=== PATIENT | female | born 1985 | race American Indian/Alaskan Native ===

== ENCOUNTER 2018-11-17 07:39 | Inpatient (IN) | payer OTHER ==
[2018-11-17] MEDS ORDERED: BRETHINE SUB-Q PRN (08:08)
[2018-11-17] MEDS ORDERED: XYLOCAINE 2% INFILTRATI ONE (08:08)
[2018-11-17] MEDS ORDERED: SUBLIMAZE IV PRN (08:08)
[2018-11-17] MEDS ORDERED: MINERAL OIL PO PRN (08:08)
[2018-11-17] MEDS ORDERED: AMPICILLIN/NS 2 GM/100 ML 2 GM/100 ML BAG IV ONE (08:08)
[2018-11-17] MEDS ORDERED: ZOFRAN IV PRN (08:08)
--- NOTE | 2018-11-17 08:08 | History and Physical Report ---
History of Present Illness Date of examination: 11/17/18 Chief complaint: SROM 203911/17/18 History of present illness: EDC Calculations LMP: 12/04/2018 Past History : 4 Premature Births: 1 Living Children: 1 Para: 1 Elect. Ab: 1 Spont. 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 of genital herpes: no Rash, Viral, or Febrile illness since last LMP? no Varicella/Chicken Pox Status: Immunized Genetic History Congenital Heart Defect: Mom: no Dad: no Cinthia Disease: Mom: no Dad: no Thalassemia Mom: no Dad: no Neural Tube Defect Mom: no Dad: no Down's Syndrome Mom: no Dad: no Dustin-Sachs Mom: no Dad: no Sickle Cell Disease/Trait Mom: no Dad: no Hemophilia Mom: no Dad: no Muscular Dystrophy Mom: no Dad: no Cystic Fibrosis Mom: no Dad: no Ariana Chorea Mom: no Dad: no Mental Retardation Mom: no Dad: no Fragile X Mom: no Dad: no Other Genetic/Chromosomal Disorder Mom: no Dad: no Child w/other defect Mom: no Dad: no Enviromental Exposures Xray Exposure: no Medication, drug, or alcohol use since LMP: no Chemical/Other Exposure: no Exposure to Cat Liter: no Hx of Parvovirus (Fifth Disease): no Occupational Exposure to Children: none Active Medications (reviewed today): PNV () Current Allergies (reviewed today): No known allergies Past History Past Medical History: other (see HPI) Past Surgical History: other (see HPI) LATHE MACHINIST History: other (see HPI) Family/Genetic History: other (see HPI) - Obstetrical History Expected Date of Delivery: 12/04/18 Actual Gestation: 37 Week(s) 4 Day(s) : 4 Para: 1 Hx # Term Pregnancies: 0 Number of Pregnancies: 1 Spontaneous Abortions: 1 Induced : 1 Number of Living Children: 1 Medications and Allergies Allergies Allergy/AdvReac Type Severity Reaction Status Date / Time No Known Allergies Allergy Verified 04/23/16 17:02 Review of Systems All systems: negative - Vital Signs Vital signs: Vital Signs Temp Pulse Resp BP 97.7 F 90 18 134/78 11/17/18 08:01 11/17/18 08:01 11/17/18 08:01 11/17/18 08:01 Temp Pulse Resp BP Pulse Ox 97.7 F 90 18 134/78 11/17/18 08:01 11/17/18 08:01 11/17/18 08:01 11/17/18 08:01 - Physical Exam Breasts: Positive: normal Cardiovascular: Regular rate Lungs: Positive: Clear to auscultation, Normal air movement Abdomen: Positive: normal appearance, soft Genitourinary (Female): Positive: normal external genitalia, normal perenium Vagina: Positive: normal moisture Uterus: Positive: normal size, normal contour Anus/Rectum: Positive: normal perianal skin Extremities: Positive: normal - Obstetrical Uterine Contraction Monitor Mode: External Cervical Dilatation: 4.5 Cervical Effacement Percentage: 90 Uterine Contraction Pattern: Regular Uterine Tone Measurement Phase: Contraction Uterine Contraction Intensity: Moderate Results Result Diagrams: 11/17/18 08:30 All other labs normal. Assessment and Plan 33y/o @ 37+4 weeks, SROM in active labor. pt reports SROM @ 2039 last night, GBS +, CMV +. Admission orders in EMR. NICU CN notified of the need for IgG after delivery for the + CMV. Anticipate . - Patient Problems (1) 37 weeks gestation of Current Visit: Yes Status: Acute (2) SROM (spontaneous rupture of membranes) Current Visit: Yes Status: Acute (3) GBS (group B Streptococcus carrier), +RV culture, currently Current Visit: Yes Status: Acute (4) CMV (cytomegalovirus infection) status positive Current Visit: Yes Status: Acute Qualifiers: Cytomegaloviral disease type: unspecified Qualified Code(s): B25.9 - Cytomegaloviral disease, unspecified (5) Gestational proteinuria Current Visit: Yes Status: Acute
[2018-11-17] MEDS ORDERED: PITOCin/NS 30 UNIT/500ML 30 UNITS/500 ML BAG IV SCH (08:30)
[2018-11-17 08:40] LABS: Hematocrit 38.4 % (30.3-42.9); Hemoglobin 12.4 gm/dl (10.1-14.3); Mean Corpuscular HGB Conc 32 % (30-34); Mean Corpuscular Volume 88 fl (79-97); Platelet Count 314 K/mm3 (140-440); Red Blood Count 4.35 M/mm3 (3.65-5.03); Red Cell Distribution Width 14.3 % (13.2-15.2)
[2018-11-17] MEDS: LACTATED RINGERS 1,000 ML IV SCH ×2 (09:15→10:52)
--- NOTE | 2018-11-17 11:07 | Anesthesia Consultation ---
Anesthesia Consult and Med Hx Date of service: 11/17/18 - Airway Anesthetic Teeth Evaluation: Good ROM Head & Neck: Adequate Mental/Hyoid Distance: Adequate Mallampati Class: Class I Intubation Access Assessment: Good - Pulmonary Exam CTA: Yes - Cardiac Exam Cardiac Exam: RRR - Pre-Operative Health Status ASA Pre-Surgery Classification: ASA2 Proposed Anesthetic Plan: Epidural - Pulmonary Hx Asthma: No - Cardiovascular System Hx Hypertension: No - Central Nervous System Hx Seizures: No Hx Psychiatric Problems: No - Endocrine Hx Renal Disease: No Hx Hypothyroidism: No Hx Hyperthyroidism: No
[2018-11-17] MEDS ORDERED: NARCAN 2 MG/2 ML IV PRN (11:10)
--- NOTE | 2018-11-17 11:10 | Progress Note ---
Subjective Date of service: 11/17/18 Principal diagnosis: labor Interval history: requested to place LE for Labor pain. 1040 after consent and TO, patient positioned in sitting. landmaks identified for L3-4 CSE placed without event with negative test dose at 1050. Patient verbalized comfort. Objective - Constitutional Vitals: Vital Signs - 12hr 11/17/18 11/17/18 11/17/18 08:01 09:23 09:53 Temperature 97.7 F Pulse Rate 90 88 90 Respiratory 18 Rate Blood Pressure 160/94 142/84 Blood Pressure 134/78 [Left] O2 Sat by Pulse Oximetry 11/17/18 11/17/18 11/17/18 10:36 10:47 10:51 Temperature Pulse Rate 96 H 98 H 104 H Respiratory Rate Blood Pressure 122/65 128/72 132/75 Blood Pressure [Left] O2 Sat by Pulse Oximetry 11/17/18 11/17/18 11/17/18 10:54 10:55 10:57 Temperature Pulse Rate 109 H 80 105 H Respiratory Rate Blood Pressure 128/76 137/80 Blood Pressure [Left] O2 Sat by Pulse 86 Oximetry 11/17/18 11/17/18 11/17/18 11:00 11:03 11:05 Temperature Pulse Rate 101 H 100 H 97 H Respiratory Rate Blood Pressure 129/68 133/70 Blood Pressure [Left] O2 Sat by Pulse 100 100 Oximetry 11/17/18 11:06 Temperature Pulse Rate 95 H Respiratory Rate Blood Pressure 124/60 Blood Pressure [Left] O2 Sat by Pulse Oximetry - Labs CBC & Chem 7: 11/17/18 08:30 Labs: Abnormal lab results 11/17/18 Range/Units 08:30 WBC 18.6 H (4.5-11.0) K/mm3
[2018-11-17] MEDS ORDERED: fentaNYL-BUPIV 2 MCG/ML-0.125% 200 MCG/100 ML BAG EPIDURAL SCH (12:00)
[2018-11-17] MEDS ORDERED: AMPICILLIN/NS 1 GM/50 ML 1 GM/50 ML BAG IV SCH (12:00)
[2018-11-17] MEDS: PITOCin/NS 20 UNIT/1000ML DRIP 20 UNITS/1,000 ML BAG IV SCH ×2 (13:30→16:06)
--- NOTE | 2018-11-17 14:09 | Procedure Note ---
OB Delivery Note - Delivery Date of Delivery: 11/17/18 Surgeon: MICHELINE DAMON Estimated blood loss: 300cc - Vaginal Delivery presentation: vertex Delivery position: OA Intrapartum events: prolonged 2nd stage>2.5hr Delivery induction: none Delivery augmentation: pitocin Delivery monitor: external FHT, external uterine Route of delivery: Delivery placenta: manual (cord evulsed resulted in removal manually. it was inspected and all portions are present and intact) Delivery laceration: 2nd degree (perineal repaired with 3-0 vicrly in usual fashion) Delivery repair: vicryl (3-0) Anesthesia: epidural Delivery comments: Delivery as above. Pt with about one hour of pushing after being completely dilated at 10 cm for >2hrs. Ant shoulder and rest of delivered without difficulty over intact perineum. Infant placed on maternal abdomen. Cord clamped x2 and cut times one by FOC. Plancenta manually extracted. Inspection was done and all parts were present. 2nd degree perineal laceration was noted and repaired in usual fashion with 3-0 vicryl. Mother and stable in LDR. EBL 300ml. - A at 1 minute: 8 at 5 minutes: 9 Infant Gender: Female (6lbs 8oz (Ashley))
[2018-11-17] MEDS ORDERED: LANSINOH TP PRN ×2 (14:21→16:59)
[2018-11-17] MEDS ORDERED: TUCKS PAD TP PRN ×2 (14:21→16:59)
[2018-11-17] MEDS ORDERED: BENADRYL PO PRN ×2 (14:21→16:59)
[2018-11-17] MEDS ORDERED: MILK OF MAGNESIA PO PRN ×2 (14:21→16:59)
[2018-11-17] MEDS ORDERED: DULCOLAX PR PRN ×2 (14:21→16:59)
[2018-11-17] MEDS ORDERED: TYLENOL PO PRN ×2 (14:21→16:59)
[2018-11-17] MEDS ORDERED: IBUPROFEN PO PRN (14:39)
[2018-11-17] MEDS ORDERED: SODIUM CHLORIDE FLUSH SYRINGE 10 ML IV NR ×2 (15:00→16:59)
[2018-11-17] MEDS ORDERED: PHENERGAN PO PRN (16:59)
[2018-11-17] MEDS ORDERED: PITOCin/NS 20 UNIT/1000ML DRIP 20 UNITS/1,000 ML BAG IV SCH (16:59)
[2018-11-17] MEDS ORDERED: DERMOPLAST TP PRN (16:59)
[2018-11-17] MEDS: IBUPROFEN PO SCH (17:38)
[2018-11-17] MEDS: FEOSOL PO SCH (22:08)
[2018-11-17] MEDS: COLACE PO SCH (22:08)
[2018-11-18] MEDS: IBUPROFEN PO SCH ×4 (00:22→20:50)
[2018-11-18 01:39] LABS: Hemoglobin 11.7 gm/dl (10.1-14.3)
[2018-11-18] MEDS: FEOSOL PO SCH ×2 (10:24→22:24)
[2018-11-18] MEDS: PRENATAL VITAMIN PO SCH (10:25)
[2018-11-18] MEDS: COLACE PO SCH ×2 (10:25→22:24)
--- NOTE | 2018-11-18 11:21 | Discharge Summary ---
Providers - Providers Date of Admission: 11/17/18 08:51 Date of discharge: 11/19/18 (patient desires discharge tomorrow) Attending physician: MICHELINE DAMON Primary care physician: YIN SANTIAGO Hospitalization Reason for admission: labor Condition: Good Pertinent studies: post delivery H&H 11.36 Procedures: Hospital course: uncomplicated labor & delivery and course Disposition: - TO HOME OR SELFCARE Core Measure Documentation - Palliative Care Palliative Care/ Comfort Measures: Not Applicable - Core Measures Any of the following diagnoses?: none Exam - Constitutional Vitals: Temp Pulse Resp BP Pulse Ox 98.4 F 79 20 129/72 99 11/18/18 00:00 11/18/18 00:00 11/18/18 00:00 11/18/18 00:00 11/17/18 13:24 General appearance: Present: no acute distress, well-nourished - EENT Eyes: Present: PERRL ENT: hearing intact, clear oral mucosa - Neck Neck: Present: supple, normal ROM - Respiratory Respiratory effort: normal Respiratory: bilateral: CTA - Cardiovascular Heart Sounds: Present: S1 & S2. Absent: rub, click - Extremities Extremities: pulses symmetrical, No edema Peripheral Pulses: within normal limits - Abdominal General gastrointestinal: Present: soft, non-tender, non-distended, normal bowel sounds Female genitourinary: Present: normal - Integumentary Integumentary: Present: clear, warm, dry - Musculoskeletal Musculoskeletal: gait normal, strength equal bilaterally - Psychiatric Psychiatric: appropriate mood/affect, intact judgment & insight - Neurologic Neurologic: CNII-XII intact, moves all extremities - Additional findings Additional findings: fundus firm, ML, U/1, scant bleeding. perineal laceration healing well. patient reports pain is well controlled with IBU. going well, supplementing with formula as needed. Plan Activity: no restrictions Diet: regular Follow up with: YIN SANTIAGO MD [Primary Care Provider] - 7 Days JORGE BONDS CNM [Advanced Practice Nurse] - 6 Weeks (Congratulations! Please call [phone] upon discharge to schedule your appointment in 6 weeks. Call with any questions or concerns. ) Prescriptions: Ibuprofen [Motrin] 600 mg PO Q8H PRN #30 tablet PRN Reason: Pain
[2018-11-18] MEDS ORDERED: BOOSTRIX IM ONE (14:21)
[2018-11-19] MEDS: IBUPROFEN PO SCH (12:01)
[2018-11-19] MEDS: COLACE PO SCH (12:02)
[2018-11-19] MEDS: PRENATAL VITAMIN PO SCH (12:02)
[2018-11-19] MEDS: FEOSOL PO SCH (12:02)
[2018-11-19 17:01] VITALS: BP 139/57
== END 2018-11-19 18:55 | disposition home or self-care (01) | DRG 806 ==
LOC: TRG 07:39 → LD 08:51 → OB 16:05
PROVIDERS: ADMIT Obstetrics & Gynecology; ATTEND Obstetrics & Gynecology
PROC: 10E0XZZ Delivery of Products of Conception, External Approach (ICD-10-PCS; principal; 2018-11-17)
PROC: 0KQM0ZZ Repair Perineum Muscle, Open Approach (ICD-10-PCS; 2018-11-17)
PROC: 3E0R3BZ Introduction of Anesthetic Agent into Spinal Canal, Percutaneous Approach (ICD-10-PCS; 2018-11-17)
PROC: 00HU33Z Insertion of Infusion Device into Spinal Canal, Percutaneous Approach (ICD-10-PCS; 2018-11-17)
PROC: 3E0234Z Introduction of Serum, Toxoid and Vaccine into Muscle, Percutaneous Approach (ICD-10-PCS; 2018-11-18)
DX: O99.824 Streptococcus B carrier state complicating childbirth (principal); O98.52 Other viral diseases complicating childbirth; Z37.0 Single live birth; B25.9 Cytomegaloviral disease, unspecified; O63.1 Prolonged second stage (of labor); O12.14 Gestational proteinuria, complicating childbirth; Z3A.37 37 weeks gestation of pregnancy; Z83.3 Family history of diabetes mellitus; Z84.89 Family history of other specified conditions; Z23 Encounter for immunization; O70.1 Second degree perineal laceration during delivery
CPT/HCPCS: 36415; 85014; 85018; 85027; 86592; 86850; 86900; 86901; G0378; J0290; J2590; J3010; J7120

== ENCOUNTER 2020-10-13 09:26 | Day surgery (SDC) | payer OTHER ==
[2020-09-03 12:05] LABS: Hematocrit 40.6 % (30.3-42.9); Hemoglobin 13.7 gm/dl (10.1-14.3); Mean Corpuscular HGB Conc 34 % (30-34); Mean Corpuscular Volume 86 fl (79-97); Platelet Count 319 K/mm3 (140-440); Red Blood Count 4.72 M/mm3 (3.65-5.03); Red Cell Distribution Width 12.7 % (13.2-15.2)
--- NOTE | 2020-10-10 18:37 | History and Physical Report ---
History of Present Illness Date of examination: 10/07/20 Chief complaint: Sterilization History of present illness: Past History : 5 Term Births: 2 Premature Births: 1 Living Children: 3 Para: 3 Mult. Births: 0 Prev : 0 Prev. attempt? 0 Aborta: 2 Elect. Ab: 1 Spont. 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 of genital herpes: no Partner hx. of genital herpes: no Hx of STD: none Active Medications (reviewed today): PLUS 27-1 MG ORAL TABLET ( VIT-FE FUMARATE-FA) 1 po Current Allergies (reviewed today): No known allergies Past Medical History: Reviewed history from 09/02/2020 and no changes required: Getsational proteinuria 2019 Past Surgical History: Reviewed history from 06/04/2018 and no changes required: D&C: Family History Summary: Reviewed history Last on 12/03/2019 and no changes required:10/10/2020 Other Family Member - Has No Family History of Uterine Cancer - Entered On: 09/18/2020 Other Family Member - Has No Family History of Small Bowel Cancer - Entered On: 09/18/2020 Other Family Member - Has No Family History of Stomach Cancer - Entered On: 09/18/2020 Other Family Member - Has No Family History of Pancreatic Cancer - Entered On: 09/18/2020 Other Family Member - Has No Family History of Ovarvian Cancer - Entered On: 09/18/2020 Other Family Member - Has No Family History of Kidney/Urinary Tract Cancer - Entered On: 09/18/2020 Other Family Member - Has No Family History of Spontaneous DVT-PE - Entered On: 09/18/2020 Other Family Member - Has No Family History of Colon Cancer - Entered On: 09/18/2020 Other Family Member - Has No Family History of Brain Cancer - Entered On: 11/18/2019 Other Family Member - Has No Family History of Biliary Tract Cancer - Entered On: 09/18/2020 MGM - Has Family History Breast Cancer - MGGM - Entered On: 09/18/2020 General Comments - FH: father-DM, gout, neuropathy Social History: Reviewed history from 06/04/2018 and no changes 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: Smoked Tobacco Use: Never smoker Smokeless Tobacco Use: Never Drug use: no HIV high-risk behavior: no Alcohol use: yes Exercise: yes Seatbelt use: 100 % PAP Smear History: Date of Last PAP Smear: 12/03/2019 Previous Tobacco Use: Signed On 09/02/2020 Smoked Tobacco Use: Never smoker Smokeless Tobacco Use: Never Drug use: no HIV high-risk behavior: no Previous Alcohol Use: Signed On 09/02/2020 Alcohol use: yes Type: occ Drinks per day: social Exercise: yes Times per week: walking Seatbelt use: 100 % Dietary Counseling: pn yes PAP Smear History: Date of Last PAP Smear: 12/03/2019 Physical Exam Appearance: well developed, well nourished, no acute distress Other Exams Lungs: no rales, rhonchi, or wheezes Heart: S1, S2, no murmur, rub, or gallop Genitourinary Exam Uterus: deferred for EUA Impression & Recommendations: Problem # 1: Sterilization (ICD-V25.2) ([id number]) Orders: Ofc Vst Est 01280 ([id number]) Risks of regret emphasized. Permanent and irreversible condition explained to patient. Pt verbalized understanding. Consent reviewed and signed. Pre- operative instructions sheets given. The risks and alternatives to this surgery were reviewed with the patient. Infection precautions reviewed, Patient given ample opportunity to have all her questions answered before signing informed consent. Patient informed of . 1%failure rate emphasized Possible laparotomy explained to patient. She was informed of possible bleeding, infection, injury to bowel, bladder, ureters or other adjacent organs. The patient was instructed/informed the following: The normal length of hospital stay for this procedure. Nothing to eat or drink after midnight the evening prior to surgery. Clear liquids after lunch Pre-op instruction sheets given. Wound care instructions given. Infection precautions reviewed, patient to call for any signs or symptoms of infection. The usual discomforts associated with this procedure were detailed. Proper use of pain medicines was reviewed. Patient was given ample opportunity to have all her questions answered before signing informed consent. H&P dictated. Medications and Allergies Allergies Allergy/AdvReac Type Severity Reaction Status Date / Time No Known Allergies Allergy Verified 08/28/20 10:33 Home Medications Medication Instructions Recorded Confirmed Last Taken Type Ibuprofen [Motrin] 600 mg PO Q8H PRN #30 tablet 11/18/18 08/28/20 Unknown Rx Plus Tablet 1 tab PO DAILY 07/12/20 08/28/20 07/12/20 09:00 History Active Meds: Active Medications Cefazolin Sodium (Ancef/Sterile Water 2 Gm/20 Ml) 2 gm in 20 mls @ 80 mls/hr IV PREOP NR; Protocol Exam Vital Signs Temp Pulse Resp BP Pulse Ox 98.4 F 70 20 135/93 97 09/03/20 11:30 09/03/20 11:30 09/03/20 11:30 09/03/20 11:30 09/03/20 11:30 Results - Labs 09/03/20 11:40 Assessment and Plan - Patient Problems (1) Sterilization Status: Acute
[~2020-10-13 09:26] MED LIST: ACETAMINOPHEN 500 MG TAB PO SCH; CELECOXIB 200 MG CAP PO NR; GABAPENTIN 300 MG CAP PO NR; LACTATED RINGERS 1,000 ML IV SCH; MIDAZOLAM 2 MG/2 ML INJ IV NR; ceFAZolin/Water 2 GM/20 ML 2 GM/20 ML SYRINGE IV NR
--- NOTE | 2020-10-13 10:13 | Anesthesia Day of Surgery ---
Anesthesia Day of Surgery - Day of Surgery Patient Examined: Yes Patient H&P Reviewed: Yes Patient is NPO: Yes
--- NOTE | 2020-10-13 10:13 | Anesthesia Consultation ---
Anesthesia Consult and Med Hx Date of service: 10/13/20 - Airway Anesthetic Teeth Evaluation: Good ROM Head & Neck: Adequate Mental/Hyoid Distance: Adequate Mallampati Class: Class III Intubation Access Assessment: Possibly Difficult - Pulmonary Exam CTA: Yes - Cardiac Exam Cardiac Exam: RRR - Pre-Operative Health Status ASA Pre-Surgery Classification: ASA1 Proposed Anesthetic Plan: General - Pulmonary Hx Smoking: No Hx Respiratory Symptoms: No - Cardiovascular System Hx Hypertension: No - Central Nervous System CVA: No Hx Back Pain: Yes (Lower) - Gastrointestinal Hx Gastroesophageal Reflux Disease: No - Endocrine Hx Renal Disease: No Hx Liver Disease: No Hx Insulin Dependent Diabetes: No Hx Non-Insulin Dependent Diabetes: No Hx Thyroid Disease: No - Other Systems Hx Obesity: Yes (BMI 33) - Additional Comments Anesthesia Medical History Comments: No hx anesthetic complications.
[2020-10-13] MEDS ORDERED: HYDROmorphone 1 MG/1 ML INJ IV PRN (10:14)
[2020-10-13] MEDS ORDERED: ONDANSETRON 4 MG/2 ML INJ IV PRN (10:14)
[2020-10-13] MEDS ORDERED: propofoL 200 MG/20 ML VIAL IV ONE (12:19)
[2020-10-13] MEDS ORDERED: fentaNYL 100 MCG/2 ML INJ ONE (12:19)
[2020-10-13] MEDS ORDERED: BUPIVACAINE/PF (0.5%) 5 MG/1 ML 30 ML VIAL INFILTRATI ONE ×2 (12:24→12:40)
[2020-10-13] MEDS ORDERED: SODIUM CHLORIDE 0.9% IRR 1,500 ML BOTTLE IR ONE (12:40)
[2020-10-13] MEDS ORDERED: LIDOCAINE MPF (2%) 20 MG/1 ML VIAL 5 ML ONE (13:07)
[2020-10-13] MEDS ORDERED: ONDANSETRON 4 MG/2 ML INJ ONE (13:07)
[2020-10-13] MEDS ORDERED: SUCCINYLCHOLINE CHLORIDE 200 MG/10 ML INJ MDV ONE (13:07)
[2020-10-13] MEDS ORDERED: KETOROLAC 30 MG/1 ML INJ ONE (13:07)
[2020-10-13] MEDS ORDERED: dexAMETHasone 20 MG/5 ML VIAL ONE (13:07)
[2020-10-13] MEDS ORDERED: GLYCOPYRROLATE 0.4 MG/2 ML INJ ONE (13:20)
[2020-10-13] MEDS ORDERED: NEOSTIGMINE 10MG/10 ML INJ MDV ONE (13:20)
--- NOTE | 2020-10-13 13:32 | Operative Report ---
Operative Report Operative Report: Date of operation: 10/13/2020 Pre-operative diagnosis: 1. Desires sterilization by bilateral salp ingectomy Post-operative diagnosis: 1. Desires sterilization by bilateral salpingectomy Procedure name(s): 1. Laparoscopic bilateral salpingectomy for sterilization Surgeon: Kaylie Portillo MD Tufter: [] Anesthesia: General endotracheal anesthesia Anesthesiologist: General EBL: Minimal Urine output: 75 mL of clear yellow urine Findings: Grossly normal uterus tubes and ovaries Procedure: After risks, benefits, complications, consequences and alternatives for this procedure were discussed with patient and she voiced understanding desire to proceed, the patient was taken to the operating suite and placed in the supine position. General anesthesia was induced. She placed in dorsolithotomy position and prepped and draped in the usual sterile fashion. Timeout was performed. The bladder was drained of approximately 75 cc of clear yellow urine. An operative speculum was introduced into the vagina, and the anterior lip of the cervix was grasped with an Allis clamp. The uterus was sounded to 8 cm. The cervix was progressively dilated to allow the [place] uterine manipulator to be placed without difficulty. The speculum and clamp were removed. Sterile gloves were placed and attention was turned to the abdomen. An infraumbilical incision was made and a 5 mm bladeless Optiview trocar was placed with laparoscope and camera inserted. No obvious bowel, bladder, ureteral or major vascular injury was noted. The abdomen was insufflated. She was then placed in Trendelenburg position. Grossly normal flynn regi tubes and ovaries were noted. Then an incision was made approximately 2 cm superior to the symphysis pubis in the midline. An 8 mm bladeless trocar was introduced under the direct visualization. Again no obvious bowel, bladder, ureteral or major vascular injury was noted. The uterus was elevated, and using the 5 mm [place] LigaSure device bilateral salpingectomy was performed in the usual fashion. Each tube was removed through the 8 mm trocar. Attention was turned back to the adnexa when hemostasis was noted bilaterally. The CO2 was released under direct visualization to ensure hemostasis. Hemostasis was noted. At which point the procedure was ended. The 8 mm trochars removed under direct visualization hemostasis was noted. The CO2 was then released. The 5 mm trocar was removed. The incisions were infused with half percent Marcaine without epinephrine. The incisions were reapproximated using 4-0 Vicryl in a subcuticular manner. Hemostasis was noted. Attention was turned to the vagina where the [place] uterine manipulator was removed. Hemostasis was noted. Patient was taken to recovery room in stable condition.
--- NOTE | 2020-10-13 13:53 | Discharge Summary ---
Providers - Providers Date of discharge: 10/13/20 Attending physician: BRANDON WALLS Primary care physician: CB HOFFMAN MD Hospitalization Condition: Good Hospital course: (B) salpingectomy for sterilization Disposition: DC-01 TO HOME OR SELFCARE - Discharge Diagnoses (1) Sterilization Status: Acute Core Measure Documentation - Palliative Care Palliative Care/ Comfort Measures: Not Applicable - Core Measures Any of the following diagnoses?: none Exam - Constitutional Vitals: Temp Pulse Resp BP Pulse Ox 97.5 F L 84 16 129/91 99 10/13/20 10:00 10/13/20 10:00 10/13/20 11:05 10/13/20 10:00 10/13/20 10:00 General appearance: Present: no acute distress - Respiratory Respiratory effort: normal - Cardiovascular Rhythm: regular Plan Activity: no restrictions Weight Bearing Status: Full Weight Bearing Diet: regular Wound: open to air, keep clean and dry Special Instructions: no heavy lifting (greater than 25lbs) Health Concerns: Attempted to contact her at the number on the chart however there was a message stating "I'm sorry the person you called has a voicemail box that has not been set up yet" Follow up with: CB HOFFMAN MD [Primary Care Provider] - 7 Days BRANDON WALLS MD [Staff Physician] - (as scheduled) Prescriptions: Ibuprofen [Motrin 600 MG tab] 600 mg PO Q8H PRN #30 tablet PRN Reason: Pain oxyCODONE /ACETAMINOPHEN [Percocet 5/325 mg] 1 - 2 tab PO Q6HR PRN #7 tablet PRN Reason: Pain
[2020-10-13 15:02] VITALS: BP 126/78
--- NOTE | 2020-10-13 16:01 | Post Anesthesia Evaluation ---
- Post Anesthesia Evaluation Patient Participated: Yes Airway Patent: Yes Stable Respiratory Function: Yes Nausea/Vomiting: No Temp > 96.8F: Yes Pain Manageable: Yes Adequeate Hydration: Yes Anesthesia Complications: No
== END 2020-10-13 09:27 | disposition home or self-care (01) ==
LOC: OR 09:26
PROVIDERS: ATTEND Obstetrics & Gynecology
DX: Z30.2 Encounter for sterilization (principal); Z20.828 Contact with and (suspected) exposure to other viral communicable diseases; G43.909 Migraine, unspecified, not intractable, without status migrainosus; E66.9 Obesity, unspecified; Z83.3 Family history of diabetes mellitus; Z98.890 Other specified postprocedural states; Z79.899 Other long term (current) drug therapy; Z68.33 Body mass index [BMI] 33.0-33.9, adult
CPT/HCPCS: 36415; 58661; 81025; 85027; 86850; 86900; 86901; 88302; J0330; J0690; J1100; J1885; J2250; J2405; J2704; J2710; J3010; J7120; U0003